=== PATIENT | female | born 1975 | race Caucasian/White ===

== ENCOUNTER 2022-01-15 10:24 | Inpatient (IN) | payer BC, OTHER ==
[~2022-01-15] VITALS: Ht 157.5 cm; Wt 45.0 kg
[2022-01-15] MEDS ORDERED: ACETAMINOPHEN 325 MG TAB PO STA (11:40)
[2022-01-15] MEDS ORDERED: SODIUM CHLORIDE 0.9% 1000ML 1,000 ML IV STA (11:40)
[2022-01-15] MEDS ORDERED: KETOROLAC TROMETHAMINE 30 MG/ML VIAL IV ONE (11:45)
[2022-01-15] MEDS ORDERED: Vancomycin IV 1.25 GM in SODIUM CHLORIDE 0.9% 250ML 250 ML IV ONE (11:45)
[2022-01-15] MEDS ORDERED: KETOROLAC TROMETHAMINE 30 MG/ML VIAL ONE (12:14)
[2022-01-15] MEDS ORDERED: PIPERACILLIN/TAZOBACTAM 3.375 GM VIAL ONE (12:15)
[2022-01-15] MEDS ORDERED: SODIUM CHLORIDE 0.9% 250ML 250 ML ONE (12:15)
[2022-01-15] MEDS ORDERED: ACETAMINOPHEN 325 MG TAB ONE (12:15)
[2022-01-15] MEDS ORDERED: SODIUM CHLORIDE 0.9% 1000ML 1,000 ML ONE (12:15)
[2022-01-15] MEDS ORDERED: Vancomycin IV 1 GM VIAL ONE (12:15)
[2022-01-15] MEDS ORDERED: ONDANSETRON HCL INJ 2MG/ML 2ML 2 MG/ML VIAL IV PRN (12:15)
[2022-01-15] MEDS ORDERED: SODIUM CHLORIDE FLUSH 10 ML SYR INJ PRN (12:15)
[2022-01-15] MEDS ORDERED: DIPHENHYDRAMINE HCL INJ 50 MG/ML VIAL IV PRN (12:15)
[2022-01-15] MEDS ORDERED: ACETAMINOPHEN 325 MG TAB PO PRN (12:15)
[2022-01-15 15:00] VITALS: BP 136/85
[2022-01-15 17:00] VITALS: BP 136/85
[2022-01-15] MEDS: Vancomycin IV 1 GM in SODIUM CHLORIDE 0.9% 250ML 250 ML IV SCH (17:01)
[2022-01-15] MEDS: FAMOTIDINE 20 MG TAB PO SCH (17:01)
[2022-01-15 20:00] VITALS: BP 116/87
[2022-01-15 20:03] VITALS: BP 116/87
[2022-01-15] MEDS ORDERED: ZOLPIDEM TARTRATE 5 MG TAB PO PRN (21:00)
[2022-01-15] MEDS ORDERED: DOCUSATE SODIUM 100 MG CAP PO PRN (22:30)
[2022-01-16] VITALS (8 sets, daily range): BP systolic 104–126; BP diastolic 74–87
[2022-01-16 07:07] LABS: BASOPHILS % 0.5 % (0.0-1.0); EOSINOPHILS # (AUTO) 0.1 (0.0-0.4); EOSINOPHILS % 1.7 % (0.0-6.0); HEMATOCRIT 38.9 % (34.2-44.1); HEMOGLOBIN 12.5 g/dL (12.0-16.0); LYMPHOCYTES # (AUTO) 1.5 (1.0-3.2); LYMPHOCYTES % 18.3 % (18.0-39.1); MEAN CORPUSCULAR HEMOGLOBIN 29.3 pg (28-32); MEAN CORPUSCULAR HGB CONC 32.1 g/dL (31-35); MEAN CORPUSCULAR VOLUME 91.1 fL (81-99); MONOCYTES # (AUTO) 0.5 (0.2-0.8); MONOCYTES % 6.1 % (4.4-11.3); NEUTROPHILS # (AUTO) 6.1 (2.1-6.9); PLATELET COUNT 138 x10e3/uL (140-360); RED BLOOD COUNT 4.27 x10e6/uL (3.6-5.1); RED CELL DISTRIBUTION WIDTH 13.5 % (11.7-14.4)
[2022-01-16 07:42] LABS: ANION GAP 15.8 mmol/L (8-16); CREATININE, SERUM 0.55 mg/dL (0.57-1.11); POTASSIUM 3.8 mmol/L (3.5-5.1)
[2022-01-16 07:43] LABS: MAGNESIUM 1.8 MG/DL (1.3-2.1); PHOSPHORUS 3.3 MG/DL (2.3-4.7)
[2022-01-16] MEDS: FAMOTIDINE 20 MG TAB PO SCH ×2 (09:18→17:31)
[2022-01-16] MEDS: IBUPROFEN 200 MG TAB PO PRN ×2 (09:24→17:30)
[2022-01-16 11:44] LABS: HIV 1&2 AB SCREEN NON-REACTIVE (NONREACTIVE)
[2022-01-16] MEDS: Vancomycin IV 1 GM in SODIUM CHLORIDE 0.9% 250ML 250 ML IV SCH (12:22)
[2022-01-16] MEDS ORDERED: ENOXAPARIN SOD INJ 40 MG/0.4 ML SYR SC SCH (17:00)
[2022-01-16] MEDS ORDERED: Vancomycin IV 1 GM VIAL ONE (23:57)
[2022-01-16] MEDS ORDERED: SODIUM CHLORIDE 0.9% 250ML 250 ML ONE (23:57)
[2022-01-17] VITALS (7 sets, daily range): BP systolic 109–135; BP diastolic 66–87
[2022-01-17] MEDS: Vancomycin IV 1 GM in SODIUM CHLORIDE 0.9% 250ML 250 ML IV SCH ×3 (00:01→23:15)
[2022-01-17] MEDS: FAMOTIDINE 20 MG TAB PO SCH ×2 (07:30→17:08)
[2022-01-17 08:35] LABS: MAGNESIUM 1.7 MG/DL (1.3-2.1)
[2022-01-17] MEDS ORDERED: POVIDONE IODINE 0.05% 0.05 % ML PO ONE (13:45)
[2022-01-17] MEDS ORDERED: KETOROLAC TROMETHAMINE 30 MG/ML VIAL ONE (13:45)
[2022-01-17] MEDS ORDERED: ONDANSETRON HCL INJ 2MG/ML 2ML 2 MG/ML VIAL ONE (13:45)
[2022-01-17] MEDS ORDERED: DEXAMETHASONE SOD PHOS INJ 4 MG/ML SDV ONE (13:45)
[2022-01-17] MEDS ORDERED: LIDOCAINE HCL 2% LOCAL INJ 5 ML SDV VIAL INJ ONE (13:45)
[2022-01-17] MEDS ORDERED: PROPOFOL IV EMULSION 10 MG/ML 20 ML VIAL ONE (13:45)
[2022-01-17] MEDS ORDERED: SEVOFLURANE INHAL SOLN 250 ML PEN BTL ONE (13:45)
[2022-01-17] MEDS ORDERED: SODIUM CHLORIDE 0.9% 250ML 250 ML ONE (13:50)
[2022-01-17] MEDS ORDERED: MIDAZOLAM HCL 2 MG/2 ML VIAL ONE (14:01)
[2022-01-17] MEDS ORDERED: FENTANYL CITRATE/PF 100MCG/2 ML INJ ONE (14:01)
[2022-01-17] MEDS: HYDROCODONE/APAP 7.5MG-325MG 1 EA TAB PO PRN (17:14)
[2022-01-17] MEDS: HYDROMORPHONE 1MG/1ML INJ IV PRN (19:30)
[2022-01-18] VITALS (9 sets, daily range): BP systolic 110–165; BP diastolic 76–94
[2022-01-18 06:40] LABS: BASOPHILS % 0.3 % (0.0-1.0); EOSINOPHILS % 0.4 % (0.0-6.0); HEMATOCRIT 36.8 % (34.2-44.1); HEMOGLOBIN 12.4 g/dL (12.0-16.0); LYMPHOCYTES # (AUTO) 2.2 (1.0-3.2); LYMPHOCYTES % 19.1 % (18.0-39.1); MEAN CORPUSCULAR HEMOGLOBIN 29.6 pg (28-32); MEAN CORPUSCULAR HGB CONC 33.7 g/dL (31-35); MEAN CORPUSCULAR VOLUME 87.8 fL (81-99); MONOCYTES # (AUTO) 0.7 (0.2-0.8); MONOCYTES % 6.4 % (4.4-11.3); NEUTROPHILS # (AUTO) 8.3 (2.1-6.9); NEUTROPHILS % 73.2 % (38.7-80.0); PLATELET COUNT 247 x10e3/uL (140-360); RED BLOOD COUNT 4.19 x10e6/uL (3.6-5.1); RED CELL DISTRIBUTION WIDTH 13.1 % (11.7-14.4)
[2022-01-18 07:13] LABS: ANION GAP 14.1 mmol/L (8-16); CALCIUM 8.3 mg/dL (8.4-10.2); CREATININE, SERUM 0.63 mg/dL (0.57-1.11); POTASSIUM 4.1 mmol/L (3.5-5.1)
[2022-01-18] MEDS: HYDROMORPHONE 1MG/1ML INJ IV PRN ×4 (07:35→22:50)
[2022-01-18] MEDS: FAMOTIDINE 20 MG TAB PO SCH ×2 (08:48→16:12)
[2022-01-18] MEDS: Vancomycin IV 1 GM in SODIUM CHLORIDE 0.9% 250ML 250 ML IV SCH (11:23)
[2022-01-19] VITALS: BP 121/77
[2022-01-19] MEDS: Vancomycin IV 1 GM in SODIUM CHLORIDE 0.9% 250ML 250 ML IV SCH (00:27)
[2022-01-19 05:00] VITALS: BP 155/91
[2022-01-19] MEDS: HYDROCODONE/APAP 7.5MG-325MG 1 EA TAB PO PRN ×2 (06:09→10:17)
[2022-01-19 06:10] LABS: BASOPHILS % 0.4 % (0.0-1.0); EOSINOPHILS # (AUTO) 0.1 (0.0-0.4); EOSINOPHILS % 1.6 % (0.0-6.0); HEMATOCRIT 36.7 % (34.2-44.1); HEMOGLOBIN 12.1 g/dL (12.0-16.0); LYMPHOCYTES # (AUTO) 3.4 (1.0-3.2); LYMPHOCYTES % 48.2 % (18.0-39.1); MEAN CORPUSCULAR HEMOGLOBIN 28.9 pg (28-32); MEAN CORPUSCULAR VOLUME 87.8 fL (81-99); MONOCYTES # (AUTO) 0.5 (0.2-0.8); MONOCYTES % 6.4 % (4.4-11.3); NEUTROPHILS % 42.7 % (38.7-80.0); PLATELET COUNT 237 x10e3/uL (140-360); RED BLOOD COUNT 4.18 x10e6/uL (3.6-5.1); RED CELL DISTRIBUTION WIDTH 13.3 % (11.7-14.4)
[2022-01-19 06:47] LABS: ANION GAP 12.6 mmol/L (8-16); CALCIUM 7.8 mg/dL (8.4-10.2); CREATININE, SERUM 0.61 mg/dL (0.57-1.11); POTASSIUM 3.6 mmol/L (3.5-5.1)
[2022-01-19] MEDS ORDERED: CEPHALEXIN500 MG PO (06:57)
[2022-01-19] MEDS ORDERED: TYLENOL325 MG PO (06:57)
[2022-01-19] MEDS ORDERED: CLINDAMYCIN HC150 MG PO (06:57)
[2022-01-19 08:06] VITALS: BP 115/65
[2022-01-19 08:48] VITALS: BP 115/65
[2022-01-19 09:00] VITALS: BP 115/65
[2022-01-19] MEDS ORDERED: MULTIVITAMINS/MINERALS TAB PO SCH (09:00)
[2022-01-19] MEDS: FAMOTIDINE 20 MG TAB PO SCH (10:16)
[2022-01-20] MEDS ORDERED: NEOMYCIN/POLYMYXIN/BACITRACIN 15 GM TUBE TOP SCH (09:00)
== END 2022-01-19 11:00 | disposition home or self-care (01) | DRG 264 ==
LOC: FSED 10:32 → ERHOLD 12:13 → MED/SURG3 14:55
PROVIDERS: ADMIT Internal Medicine; ATTEND Internal Medicine
PROC: 0JBN0ZZ Excision of Right Lower Leg Subcutaneous Tissue and Fascia, Open Approach (ICD-10-PCS; principal; 2022-01-17 12:12)
DX: I96 Gangrene, not elsewhere classified (principal); E43 Unspecified severe protein-calorie malnutrition; L03.115 Cellulitis of right lower limb; Z68.1 Body mass index [BMI] 19.9 or less, adult; L02.415 Cutaneous abscess of right lower limb; F19.10 Other psychoactive substance abuse, uncomplicated; F17.200 Nicotine dependence, unspecified, uncomplicated; B95.62 Methicillin resistant Staphylococcus aureus infection as the cause of diseases classified elsewhere; T63.331A Toxic effect of venom of brown recluse spider, accidental (unintentional), initial encounter; Z20.822 Contact with and (suspected) exposure to COVID-19; B18.2 Chronic viral hepatitis C
CPT/HCPCS: 36415; 80048; 80053; 80202; 81003; 83735; 84100; 84134; 85025; 85651; 87071; 87075; 87186; 87205; 87390; 96374; 99251; 99284; G0433; G0435; J1100; J1170; J1650; J1885; J2001; J2250; J2405; J2543; J3010; J3370; J7030; J7050

== ENCOUNTER 2023-11-24 09:13 | Inpatient (IN) | payer OTHER ==
[2023-11-24] VITALS (7 sets, daily range): BP systolic 111–123; BP diastolic 72–82; PULSE 84–110; RESP 17–21; TEMP 98–101.5; O2SAT 97–100
[~2023-11-24] VITALS: Ht 157.5 cm; Wt 56.7 kg
[~2023-11-24 09:13] MED LIST: CEPHALEXIN500 MG PO; CLINDAMYCIN HC150 MG PO; TYLENOL325 MG PO
[2023-11-24 09:55] LABS: BASOPHILS % 0.2 % (0.0-1.0); EOSINOPHILS % 0.2 % (0.0-6.0); HEMATOCRIT 38.2 % (34.2-44.1); HEMOGLOBIN 12.7 g/dL (12.0-16.0); LYMPHOCYTES # (AUTO) 1.6 (1.0-3.2); LYMPHOCYTES % 12.4 % (18.0-39.1); MEAN CORPUSCULAR HEMOGLOBIN 28.7 pg (28-32); MEAN CORPUSCULAR HGB CONC 33.2 g/dL (31-35); MEAN CORPUSCULAR VOLUME 86.4 fL (81-99); MONOCYTES # (AUTO) 1.1 (0.2-0.8); MONOCYTES % 8.2 % (4.4-11.3); NEUTROPHILS # (AUTO) 10.2 (2.1-6.9); NEUTROPHILS % 78.3 % (38.7-80.0); PLATELET COUNT 316 x10e3/uL (140-360); RED BLOOD COUNT 4.42 x10e6/uL (3.6-5.1); RED CELL DISTRIBUTION WIDTH 14.1 % (11.7-14.4); WHITE BLOOD COUNT 13.05 x10e3/uL (4.8-10.8)
[2023-11-24 10:12] LABS: CLARITY,URINE CLOUDY (CLEAR); COLOR,URINE YELLOW (YELLOW)
[2023-11-24 10:13] LABS: BACTERIA,URINE MANY /HPF; BILIRUBIN,URINE NEGATIVE (NEGATIVE); EPITHELIAL CELLS,URINE FEW /LPF; GLUCOSE, URINE NEGATIVE (NEGATIVE); KETONES,URINE NEGATIVE (NEGATIVE); LEUKOCYTE ESTERASE ,URINE SMALL (NEGATIVE); NITRITE,URINE POSITIVE (NEGATIVE); PH,URINE 5.5 (5 - 7); PROTEIN,URINE DIPSTICK TRACE (NEGATIVE); URINE UROBILINOGEN 0.2 mg/dL (0.2 - 1); WBC,URINE (MAN) >50 /HPF (0-5)
[2023-11-24 10:14] LABS: OPIATES SCREEN,URINE NEGATIVE (NEGATIVE)
[2023-11-24 10:15] LABS: AMPHETAMINES SCREEN,URINE POSITIVE (NEGATIVE); BENZODIAZEPINES SCREEN,URINE NEGATIVE (NEGATIVE); CANNABINOIDS SCREEN,URINE POSITIVE (NEGATIVE); METHADONE SCREEN, URINE NEGATIVE (NEGATIVE); PHENCYCLIDINE SCREEN,URINE NEGATIVE (NEGATIVE)
[2023-11-24 10:22] LABS: ALBUMIN 3.6 g/dL (3.5-5.0); ALKALINE PHOSPHATASE 134 IU/L (40-150); ANION GAP 19.3 mmol/L (8-16); BILIRUBIN,TOTAL 0.6 mg/dL (0.2-1.2); BLOOD UREA NITROGEN 5 mg/dL (7-26); BUN/CREATININE RATIO 7 (6-25); CALCIUM 8.7 mg/dL (8.4-10.2); CARBON DIOXIDE 20 mmol/L (22-29); CHLORIDE 100 mmol/L (98-107); CREATININE, SERUM 0.75 mg/dL (0.57-1.11); EST GLOMERULAR FILTRATION RATE 99 ML/MIN (>=60); GLUCOSE 61 mg/dL (74-118); SODIUM 136 mmol/L (136-145); TOTAL PROTEIN 7.1 g/dL (6.5-8.1)
[2023-11-24 10:25] LABS: POTASSIUM 3.3 mmol/L (3.5-5.1)
[2023-11-24] MEDS: ONDANSETRON HCL INJ 2MG/ML 2ML 2 MG/ML VIAL IV STA (10:28)
[2023-11-24] MEDS: SODIUM CHLORIDE 0.9% 1000ML 1,000 ML IV STA (10:28)
[2023-11-24 10:40] LABS: ALANINE AMINOTRANSFERASE 16 IU/L (0-55); LIPASE 17 U/L (8-78); MAGNESIUM 1.4 MG/DL (1.3-2.1)
[2023-11-24] MEDS ORDERED: IOPAMIDOL 370 MG/ML 100 ML INFUS..BTL INJ ONE (10:41)
[2023-11-24 10:45] LABS: TROPONIN I < 0.001 ng/mL (0-0.300)
[2023-11-24] MEDS ORDERED: CEFTRIAXONE 2 GM in SODIUM CHLORIDE 0.9% 100 ML IV ONE (11:45)
[2023-11-24] MEDS: SODIUM CHLORIDE 0.9% 1000ML 1,000 ML IV SCH ×2 (11:57→14:34)
[2023-11-24] MEDS: ACETAMINOPHEN 325 MG TAB PO ONE (12:46)
[2023-11-24] MEDS: Morphine 4mg INJECTION 4 MG/ML INJ IV PRN (12:51)
[2023-11-24] MEDS: Vancomycin IV 1 GM in SODIUM CHLORIDE 0.9% 250ML 250 ML IV SCH (14:34)
[2023-11-24] MEDS: ACETAMINOPHEN 325 MG TAB PO PRN (14:35)
[2023-11-24] MEDS ORDERED: HYDROXYZINE HCL25 MG PO (14:48)
[2023-11-24] MEDS ORDERED: INDERAL20 MG PO (14:48)
[2023-11-24] MEDS: POTASSIUM CHLORIDE 10MEQ EA PO ONE (17:15)
[2023-11-24] MEDS: PROPRANOLOL HCL 10 MG TAB PO ONE (17:18)
[2023-11-24] MEDS ORDERED: BISACODYL 10 MG SUPP PR PRN (20:15)
[2023-11-24] MEDS: HYDROXYZINE HCL 25 MG TAB PO PRN (21:13)
[2023-11-25] VITALS: BP 126/67; PULSE 101; RESP 20; TEMP 97.8; O2SAT 96
[2023-11-25] MEDS: ONDANSETRON HCL INJ 2MG/ML 2ML 2 MG/ML VIAL IV PRN (02:10)
[2023-11-25 04:00] VITALS: BP 107/74; PULSE 97; RESP 18; TEMP 98.4; O2SAT 100
[2023-11-25 06:23] LABS: BASOPHILS % 0.2 % (0.0-1.0); EOSINOPHILS % 0.2 % (0.0-6.0); HEMATOCRIT 35.7 % (34.2-44.1); HEMOGLOBIN 11.5 g/dL (12.0-16.0); LYMPHOCYTES # (AUTO) 2.2 (1.0-3.2); LYMPHOCYTES % 17.9 % (18.0-39.1); MEAN CORPUSCULAR HEMOGLOBIN 28.3 pg (28-32); MEAN CORPUSCULAR HGB CONC 32.2 g/dL (31-35); MEAN CORPUSCULAR VOLUME 87.9 fL (81-99); MONOCYTES # (AUTO) 0.9 (0.2-0.8); MONOCYTES % 7.3 % (4.4-11.3); NEUTROPHILS % 73.3 % (38.7-80.0); PLATELET COUNT 282 x10e3/uL (140-360); RED BLOOD COUNT 4.06 x10e6/uL (3.6-5.1); RED CELL DISTRIBUTION WIDTH 14.3 % (11.7-14.4); WHITE BLOOD COUNT 12.29 x10e3/uL (4.8-10.8)
[2023-11-25 07:49] LABS: ALANINE AMINOTRANSFERASE 10 IU/L (0-55); ALBUMIN 2.6 g/dL (3.5-5.0); ALKALINE PHOSPHATASE 84 IU/L (40-150); ANION GAP 12.1 mmol/L (8-16); BILIRUBIN,TOTAL 0.4 mg/dL (0.2-1.2); BLOOD UREA NITROGEN < 5 mg/dL (7-26); CALCIUM 7.4 mg/dL (8.4-10.2); CARBON DIOXIDE 20 mmol/L (22-29); CHLORIDE 107 mmol/L (98-107); CREATININE, SERUM 0.61 mg/dL (0.57-1.11); EST GLOMERULAR FILTRATION RATE 111 ML/MIN (>=60); GLUCOSE 100 mg/dL (74-118); SODIUM 136 mmol/L (136-145); TOTAL PROTEIN 5.3 g/dL (6.5-8.1)
[2023-11-25 07:51] LABS: BUN/CREATININE RATIO 8 (6-25); POTASSIUM 3.1 mmol/L (3.5-5.1)
[2023-11-25 08:14] VITALS: BP 102/70; PULSE 78; RESP 15; TEMP 98; O2SAT 99
[2023-11-25] MEDS: DOCUSATE SODIUM 100 MG CAP PO SCH (09:08)
[2023-11-25] MEDS: PROPRANOLOL HCL 10 MG TAB PO SCH (09:09)
[2023-11-25] MEDS: MAGNESIUM SULFATE 2GM/50ML 50 ML IV ONE (10:14)
[2023-11-25] MEDS: POTASSIUM CHLORIDE 10MEQ EA PO ONE (10:14)
[2023-11-25 10:36] VITALS: BP 102/70; PULSE 78; RESP 15; TEMP 98; O2SAT 99
[2023-11-25] MEDS: ENOXAPARIN SOD INJ 40 MG/0.4 ML SYR SC SCH (17:19)
[2023-11-25 20:37] VITALS: BP 115/76; PULSE 91; RESP 17; TEMP 99.2; O2SAT 100
[2023-11-26] VITALS (7 sets, daily range): BP systolic 108–126; BP diastolic 68–82; PULSE 79–89; RESP 16–20; TEMP 98.5–99.3; O2SAT 98–100
[2023-11-26 06:24] LABS: ALANINE AMINOTRANSFERASE 10 IU/L (0-55); ALBUMIN 2.6 g/dL (3.5-5.0); ALBUMIN/GLOBULIN RATIO 0.8 (0.8-2.0); ALKALINE PHOSPHATASE 99 IU/L (40-150); ANION GAP 14.7 mmol/L (8-16); BILIRUBIN,TOTAL 0.2 mg/dL (0.2-1.2); BLOOD UREA NITROGEN < 5 mg/dL (7-26); CALCIUM 7.4 mg/dL (8.4-10.2); CARBON DIOXIDE 21 mmol/L (22-29); CHLORIDE 106 mmol/L (98-107); CREATININE, SERUM 0.61 mg/dL (0.57-1.11); EST GLOMERULAR FILTRATION RATE 111 ML/MIN (>=60); GLUCOSE 95 mg/dL (74-118); MAGNESIUM 1.7 MG/DL (1.3-2.1); POTASSIUM 3.7 mmol/L (3.5-5.1); SODIUM 138 mmol/L (136-145); TOTAL PROTEIN 5.9 g/dL (6.5-8.1)
[2023-11-26 06:40] LABS: BASOPHILS % 0.5 % (0.0-1.0); EOSINOPHILS # (AUTO) 0.1 (0.0-0.4); EOSINOPHILS % 0.7 % (0.0-6.0); HEMATOCRIT 34.8 % (34.2-44.1); HEMOGLOBIN 11.2 g/dL (12.0-16.0); LYMPHOCYTES # (AUTO) 1.6 (1.0-3.2); LYMPHOCYTES % 21.2 % (18.0-39.1); MEAN CORPUSCULAR HEMOGLOBIN 28.2 pg (28-32); MEAN CORPUSCULAR HGB CONC 32.2 g/dL (31-35); MEAN CORPUSCULAR VOLUME 87.7 fL (81-99); MONOCYTES # (AUTO) 0.7 (0.2-0.8); MONOCYTES % 8.9 % (4.4-11.3); NEUTROPHILS # (AUTO) 4.9 (2.1-6.9); NEUTROPHILS % 65.7 % (38.7-80.0); PLATELET COUNT 273 x10e3/uL (140-360); RED BLOOD COUNT 3.97 x10e6/uL (3.6-5.1); RED CELL DISTRIBUTION WIDTH 14.3 % (11.7-14.4); WHITE BLOOD COUNT 7.39 x10e3/uL (4.8-10.8)
[2023-11-26 06:41] LABS: BUN/CREATININE RATIO 8 (6-25)
[2023-11-26] MEDS ORDERED: CIPRO500 MG PO (10:26)
== END 2023-11-26 10:49 | disposition home or self-care (01) | DRG 872 ==
LOC: ER 09:22 → ERHOLD 12:20 → MED/SURG3 13:35 → OBSVTOIN 11-25 09:41
PROVIDERS: ADMIT Internal Medicine; ATTEND Internal Medicine
PROC: 3E0333Z Introduction of Anti-inflammatory into Peripheral Vein, Percutaneous Approach (ICD-10-PCS; principal; 2023-11-24)
DX: A41.9 Sepsis, unspecified organism (principal); N12 Tubulo-interstitial nephritis, not specified as acute or chronic; N39.0 Urinary tract infection, site not specified; F15.10 Other stimulant abuse, uncomplicated; F41.1 Generalized anxiety disorder; B96.20 Unspecified Escherichia coli [E. coli] as the cause of diseases classified elsewhere; F12.10 Cannabis abuse, uncomplicated; Z11.52 Encounter for screening for COVID-19; Z86.19 Personal history of other infectious and parasitic diseases; F17.200 Nicotine dependence, unspecified, uncomplicated
CPT/HCPCS: 36415; 71045; 74177; 80053; 80202; 80307; 81001; 82948; 83605; 83690; 83735; 84484; 84702; 85025; 87040; 87086; 87186; 99252; 99284; G0378; J0692; J0696; J1650; J2270; J2405; J2470; J3410; J3475; J7030; J7050; Q9967; U0002